=== PATIENT | male | born 1980 ===

== ENCOUNTER 2018-01-30 10:48 | Observation (INO) | payer OTHER ==
[2018-01-30 10:50] VITALS: BMI 26.6
[2018-01-30 11:14] VITALS: O2SAT 100
--- NOTE | 2018-01-30 11:14 | ED PDOC ---
HPI: Skin/Bite Injury Time Seen by Provider: 01/30/18 11:04 Chief Complaint (Nursing): Abnormal Skin Integrity History Per: Patient (this is a 37 yo male who is here because he cannot move his right index finger. Patient had work related injury on 01/13/2018 while working in [facility]. The wound was closed at the ER at [facility]. Since the initial repair he has had persitenly inability to flex the index finger.) History/Exam Limitations: no limitations Past Medical History Reviewed: Historical Data, Nursing Documentation, Vital Signs Vital Signs: Last Vital Signs Temp 98.3 F 01/30/18 10:50 Pulse 66 01/30/18 10:50 Resp 16 01/30/18 10:50 BP 134/80 01/30/18 10:50 Pulse Ox 100 01/30/18 11:13 - Medical History PMH: No Chronic Diseases - Family History Family History: States: No Known Family Hx - Home Medications Home Medications: Ambulatory Orders Medication Instructions Recorded No Known Home Med 01/30/18 - Allergies Allergies/Adverse Reactions: Allergies Allergy/AdvReac Type Severity Reaction Status Date / Time No Known Allergies Allergy Verified 01/30/18 11:09 Review of Systems ROS Statement: Except As Marked, All Systems Reviewed And Found Negative Constitutional: Negative for: Fever, Chills Gastrointestinal: Negative for: Nausea, Vomiting Musculoskeletal: Positive for: Hand Pain (induration of the right index finger with good approximation of the wound edges.) - Laboratory Results Result Diagrams: 01/30/18 11:20 01/30/18 11:20 - ECG O2 Sat by Pulse Oximetry: 100 Disposition - Clinical Impression Clinical Impression: Tendon injury - Patient ED Disposition Is Patient to be Admitted: Yes Doctor Will See Patient In The: Hospital Counseled Patient/Family Regarding: Diagnosis, Need For Followup - Disposition Disposition: Transfer of Care Disposition Time: 12:16 Condition: STABLE Forms: VoAPPs (Upper Sorbian) - POA Present On Arrival: None, Falls Or Trauma (remotely...)
[2018-01-30] MEDS ORDERED: Sodium Chloride 0.9% 1,000 ML IV STA (11:16)
[2018-01-30 11:31] LABS: BASO # 0.1 K/uL (0.0-0.2); EOS # 0.1 K/uL (0.0-0.7); EOS % 2.1 % (0.0-4.0); HEMOGLOBIN 15.2 g/dL (12.0-18.0); LYMPH # 1.9 K/uL (1.0-4.3); LYMPH % 35.6 % (20.0-40.0); MEAN CELL VOLUME 91.3 fl (80.0-94.0); MONO # 0.4 K/uL (0.0-0.8); MONO % 8.4 % (0.0-10.0); NEUT # 2.8 K/uL (1.8-7.0); NEUT % 52.9 % (50.0-75.0); RBC 4.88 Mil/uL (4.40-5.90); RED CELL DISTRIBUTION WIDTH 12.4 % (11.5-14.5); WHITE BLOOD COUNT 5.3 K/uL (4.8-10.8)
[2018-01-30 11:41] LABS: BLOOD UREA NITROGEN 19 mg/dl (9-20); GFR AFRICAN-AMERICAN > 60; GFR NON-AFRICAN AMERICAN > 60
[2018-01-30 11:45] LABS: PARTIAL THROMBOPLASTIN TIME 30.1 Seconds (25.6-37.1); PROTHROMBIN TIME 10.9 Seconds (9.8-13.1)
[2018-01-30] MEDS ORDERED: Lidocaine 2% Inj (20ml) ONE (13:43)
[2018-01-30] MEDS ORDERED: Bupivacaine HCl 0.5% PF (30 ml) Inj ONE (13:43)
--- NOTE | 2018-01-30 13:47 | CP.PCM.HP ---
History of Present Illness - History of Present Illness History of Present Illness: Plastic Surgery Note for Dr. Colton Alonzo seen in ED with his significant other complaining of inability to move his right index finger. Patient states that he injured the finger on 01/13/18 while at work. He was treated at [facility] [place] for the subsequent wound on his finger. He states that he has been unable to move the finger since the time of injury. He does report sensation in his finger with associated pain and occasional tingling/numbness. He has also noticed a good deal of bruising and swelling that has decreased since the original time of injury but is still present. He denies any further complaints at this time. Denies any recent N/V/F/ C/CP/SOB/D PMHx: None Meds: Denies All: Denies PSH: None FHx: Non-contributory Present on Admission - Present on Admission Any Indicators Present on Admission: No Review of Systems - Review of Systems All systems: reviewed and no additional remarkable complaints except Review of Systems: as per HPI Past Patient History - Past Social History Smoking Status: Unknown If Ever Smoked - PSYCHIATRIC Hx Emotional Abuse: No Hx Physical Abuse: No - ANESTHESIA Hx Anesthesia: Yes Hx Anesthesia Reactions: No Hx Malignant Hyperthermia: No Meds Allergies/Adverse Reactions: Allergies Allergy/AdvReac Type Severity Reaction Status Date / Time No Known Allergies Allergy Verified 01/30/18 11:09 Physical Exam - Constitutional Appears: Well, Non-toxic, No Acute Distress - Head Exam Head Exam: ATRAUMATIC, NORMOCEPHALIC - Eye Exam Eye Exam: EOMI, PERRL Pupil Exam: NORMAL ACCOMODATION, PERRL - ENT Exam ENT Exam: Mucous Membranes Moist, Normal Exam - Neck Exam Neck exam: Positive for: Full Rom. Negative for: Tenderness - Respiratory Exam Respiratory Exam: NORMAL BREATHING PATTERN. absent: Respiratory Distress - GI/Abdominal Exam GI & Abdominal Exam: Soft. absent: Distended, Firm, Guarding, Tenderness - Extremities Exam Additional comments: Clear evidence of previous wound to right index finger with skin edges well approximated Edema and ecchymosis noted to periwound area No erythema, malodor, necrosis or other signs of infection noted Patient unable to flex or extend finger - Back Exam Back exam: absent: CVA tenderness (L), CVA tenderness (R) - Neurological Exam Neurological exam: Alert, Oriented x3 - Psychiatric Exam Psychiatric exam: Normal Affect, Normal Mood Results - Vital Signs Recent Vital Signs: Last Vital Signs Temp 98.3 F 01/30/18 10:50 Pulse 66 01/30/18 10:50 Resp 16 01/30/18 10:50 BP 134/80 01/30/18 10:50 Pulse Ox 100 01/30/18 12:23 - Labs Result Diagrams: 01/30/18 11:20 01/30/18 11:20 Labs: Laboratory Results - last 24 hr 01/30/18 01/30/18 01/30/18 11:20 11:20 11:20 WBC 5.3 RBC 4.88 Hgb 15.2 Hct 44.6 MCV 91.3 MCH 31.0 MCHC 34.0 RDW 12.4 Plt Count 175 MPV 9.0 Neut % (Auto) 52.9 Lymph % (Auto) 35.6 [place] % (Auto) 8.4 Eos % (Auto) 2.1 Baso % (Auto) 1.0 Neut # (Auto) 2.8 Lymph # (Auto) 1.9 [place] # (Auto) 0.4 Eos # (Auto) 0.1 Baso # (Auto) 0.1 PT 10.9 INR 1.0 APTT 30.1 Sodium 141 Potassium 4.7 Chloride 100 Carbon Dioxide 24 Anion Gap 22 H BUN 19 Creatinine 0.9 Est GFR ( Amer) > 60 Est GFR (Non-Af Amer) > 60 POC Glucose (mg/dL) Random Glucose 100 Calcium 10.0 01/30/18 11:50 WBC RBC Hgb Hct MCV MCH MCHC RDW Plt Count MPV Neut % (Auto) Lymph % (Auto) [place] % (Auto) Eos % (Auto) Baso % (Auto) Neut # (Auto) Lymph # (Auto) [place] # (Auto) Eos # (Auto) Baso # (Auto) PT INR APTT Sodium Potassium Chloride Carbon Dioxide Anion Gap BUN Creatinine Est GFR ( Amer) Est GFR (Non-Af Amer) POC Glucose (mg/dL) 87 Random Glucose Calcium Assessment & Plan - Assessment and Plan (Free Text) Assessment: 37M with possible nerve vs. tendinous damage to right index finger Plan: Pt to be admitted under Dr. Segura's services IVF NPO EKG acquired with no abnormal findings Patient to OR today for exploratory surgery with repair of damaged ligamentous, tendinous and neurovascular structures as required - Date & Time Date: 01/30/18 Time: 13:54
[2018-01-30] MEDS ORDERED: Propofol 10 mg/ml Inj (20 ML) ONE (13:49)
[2018-01-30] MEDS ORDERED: Rocuronium 10 mg/ml (5 ml) ONE (13:49)
[2018-01-30] MEDS ORDERED: Succinylcholine 200 mg/10 ml Inj IV ONE (13:50)
[2018-01-30] MEDS ORDERED: Lactated Ringer's 1,000 ML IV ONE ×2 (14:25→16:37)
[2018-01-30] MEDS ORDERED: Midazolam 2 MG/2 ML VIAL ONE (14:28)
[2018-01-30] MEDS ORDERED: Sevoflurane - Inhalation Anesthetic Liq (250 ml) ONE (14:39)
[2018-01-30 15:41] VITALS: RESP 18
--- NOTE | 2018-01-30 16:03 | PCM.SURG1 ---
Surgeon's Initial Post Op Note - Surgeon's Notes Surgeon: Dr. Segura V/[place] Signal Officer: Dr. Singh PGY2 Type of Anesthesia: General LMA, Local Pre-Operative Diagnosis: Right index finger laceration injury Operative Findings: see operative report Post-Operative Diagnosis: see operative report Operation Performed: Right index finger tenodesis. Right index finger dorsal radial nerve repair w/ interposition graft Specimen/Specimens Removed: none Estimated Blood Loss: EBL {In ML}: 5 Blood Products Given: N/A Drains Used: No Drains Post-Op Condition: Good Date of Surgery/Procedure: 01/30/18 Time of Surgery/Procedure: 14:30
[2018-01-30] MEDS ORDERED: Lactated Ringer's 1,000 ML IV SCH (16:15)
[2018-01-30 17:19] VITALS: BP 132/82; PULSE 62; TEMP 97.7
--- NOTE | 2018-01-31 10:49 | CARD ---
APPROVED REPORT EKG Measurement Heart [id number] <Conclusion> Normal sinus rhythm Early repolarization Normal ECG
--- NOTE | 2018-02-04 21:36 | CON ---
EMERGENCY ROOM CONSULTATION DATE: SURGEON: Geno Segura MD HISTORY OF PRESENT ILLNESS: This is a 37-year-old male who presented to the emergency room complaining of persistent numbness of his right index finger dorsum as well as being unable to extend his right index finger after bending the finger. The ER staff consulted me. The patient was previously seen about 2 weeks ago, at which time, there was exploration of his wound was performed and there were significant extensive tendon lacerations and likely nerve injury. The wound was closed at that time and the patient was placed on a splint and in the past week or two, the patient has not gotten any better. He was complaining of persistent numbness in the dorsal aspect of the finger today when he bend the finger, he felt something pops, so he presented to the emergency room. PHYSICAL EXAMINATION: EXTREMITIES: His right index finger incision was healing well without any signs of infection. He has weakness extending his right index finger indicating likely lacerated or partially lacerated extensor tendon. He has complete numbness on the dorsal aspect of his finger. The right index finger, he had improved sensation on the right index finger ulnar aspect, but there was told some paresthesias in the radial aspect. There was no signs of infection and there was tenderness to the proximal phalanx. The patient has a known proximal phalanx fracture previously as well that was nondisplaced. I explained to the patient that since it was almost 2 weeks from the time of the injury, he was running out of time for tendon and nerve repair and the tendon may have already retracted, but I offered to take him to the operating room emergently for exploration and possible tendon repair or tenodesis or tendon transfer since it has been almost 2 weeks since his injury and there is a high chance that the tendon is retracted and he would not be able to have a primary tendon repair and I offered to repair digital nerve with use of nerve tube. I told him postoperatively, he will be on a splint for 4 to 6 weeks, for 1 second and dry and keep his arm elevated and he will need therapy afterwards. Risks and benefits of the operations for prolonged paresthesias, no improvement in sensory return, stiffness of the finger, tendon rupture, swollen finger, and need for future operation. He understood this and wish to proceed and I will dictate a separate operative report. Geno Segura MD [facility] # [id number]
--- NOTE | 2018-02-05 08:44 | OP ---
PROCEDURE DATE: 01/30/18 PREOPERATIVE DIAGNOSES: 1. Right index finger extensor digitorum communis tendon laceration. 2. Right index finger extensor indicis proprius tendon laceration. 3. Right index finger dorsal radial nerve laceration. 4. Possible right index finger volar radial nerve laceration. POSTOPERATIVE DIAGNOSES: 1. Right index finger extensor digitorum communis tendon laceration. 2. Right index finger extensor indicis proprius tendon laceration. 3. Right index finger dorsal radial nerve laceration. 4. Possible right index finger volar radial nerve laceration. PROCEDURE PERFORMED: 1. Debridement of devitalized skin from right index finger. 2. Tenodesis or tendon transfer of right index finger extensor digitorum communis tendon to the extensor indicis proprius tendon. 3. Repair of right second finger extensor indicis proprius partial tendon laceration. 4. Repair of right index finger dorsal radial nerve with interposition nerve tube. 5. Exploration or neurolysis of right index finger radial volar digital nerve. SURGEON: Geno Segura MD PHONE TRIAGE SPECIALIST: Resident, Mathieu Singh TYPE OF ANESTHESIA: Regional as well as general right index finger ulnar digital nerve block, right index finger radial digital nerve block. ANESTHESIA ADMINISTERED BY: Gustavo Vargas MD INDICATIONS FOR PROCEDURE: Please refer to my separately dictated ER consultation for history and physical. SPECIMENS: None. DRAINS: Nerve tube right index finger. ESTIMATED BLOOD LOSS: Minimal. COMPLICATIONS: None. CONDITIONS: Stable. TOURNIQUET TIME: 50 minutes. DESCRIPTION OF PROCEDURE: An 0.5% Marcaine mixed with 1% lidocaine was used in the right index finger radial ulnar digital nerve block as well as general anesthesia. The area was prepped and draped in the usual clean and sterile manner. SCDs were placed in bilateral lower extremities. Perioperative antibiotics were given and Esmarch bandage was used to exsanguinate the arm and tourniquet was inflated to 250 mmHg. The total tourniquet time for the case was 50 minute. To start of the operation by making incision that was previous area opening up with #15 blade made the incision larger to explore. First, I explore the volar radial nerve, I did neurolysis with loop magnification and was intact. On further exploration, the dorsal radial digital nerve was lacerated and there was 1 cm gap. The extensor indicis proprius tendon was completely lacerated and shredded. Proximal portion retracted and it was shredded. The extensor indicis proprius tendon was partially lacerated. We irrigated the wound with normal saline, there are any loose bodies were removed. We then repaired the extensor indicis proprius tendon with 4-0 Vicryl [id number] suture. We could not fix the extensor digitorum communis tendon primarily because it was shredded and retracted proximally. Because it was about 2 weeks from the time of the injury, so I perform the tendon transfer or tenodesis of the right extensor indicis proprius tendon and the right extensor digitorum communis tendon with 4-0 Vicryl modified Cohen technique. It was nerve gap and with loop magnification, I found the proximal portion of the dorsal radial nerve and the distal portion, it was more than 1 cm gap, so I used the [place] [employer] nerve guide, reference number [id number], lot number [id number], expiration 05/15/2018, 2 mm nerve tube and I used this as interposition graft and fixed the nerve and put it underneath the nerve tube with 8-0 nylon suture and after doing this and irrigating the wound, we closed the skin with a combination of running and interrupted 4-0 chromic sutures. We then placed Xeroform dry sterile dressing and volar splint with right wrist extended in second and third fingers at 0 degrees. Once the splint hardened, we allowed the patient to move and shoulder sling was placed and the patient taken to the recovery room and discharged home with oral antibiotics. Postop wound care limitations and physical activities, the fact there will be a scar, need to keep the splint on and dry and arm elevated were discussed and all questions were answered. Geno Segura MD
== END 2018-01-30 17:45 | disposition home or self-care (01) ==
LOC: H.ER 10:48 → H.ERHOLD 12:18
PROVIDERS: ADMIT Surgery; ATTEND Surgery
DX: S64.490A Injury of digital nerve of right index finger, initial encounter (principal); S61.210A Laceration without foreign body of right index finger without damage to nail, initial encounter; S56.421A Laceration of extensor muscle, fascia and tendon of right index finger at forearm level, initial encounter; X58.XXXA Exposure to other specified factors, initial encounter; Y92.69 Other specified industrial and construction area as the place of occurrence of the external cause
CPT/HCPCS: 26471; 64912; 80048; 82948; 85025; 85610; 85730; 93005; 99284; G0378; J0330; J0690; J1885; J2001; J2250; J2704; J3010; J7040; J7120